=== PATIENT | male | born 1965 | race Caucasian/White ===

== ENCOUNTER 2017-01-05 14:51 | Emergency (ER) | END 2017-01-05 16:37 | disposition left against medical advice (07) | LOC: UCCORT 14:51 | DX: M79.671 Pain in right foot (principal); Z53.21 Procedure and treatment not carried out due to patient leaving prior to being seen by health care provider ==

== ENCOUNTER 2018-11-22 11:32 | Emergency (ER) | payer OTHER ==
--- NOTE | 2018-11-22 13:23 | UC ---
General HPI - HPI Summary HPI Summary: 53-year-old male comes in with a chief complaint of injuries after a fall. Just prior to arrival he was tach and his left leg broke through one of the boards. He also fell backwards landing on his bottom and upper shoulders and had his left neck and shoulder wrenched. Comes in with pain in the left lower leg left-sided neck and left shoulder. He has been able to bear weight on the leg. He does have swelling on the anterior aspect of the leg. No skin break from today's injury. The neck pain is on the left side of his neck he has no weakness or numbness the pain does not radiate down into his arm. Shoulders good range of motion but does increase the pain. Patient tells me that he's got a laceration that he had a left anterior ortiz it's been a couple of weeks now and is taking a long time to heal up. He's been using Neosporin and hydroperoxide peroxide on it almost daily. No pus drainage. - History of Current Complaint Chief Complaint: UCTrauma Stated Complaint: neck lt leg injury Time Seen by Provider: 11/22/18 12:53 Pain Intensity: 8 - Allergy/Home Medications Allergies/Adverse Reactions: Allergies Allergy/AdvReac Type Severity Reaction Status Date / Time diphenhydramine Allergy See Comment Verified 11/22/18 12:13 [From Benadryl] Home Medications: Home Medications Multivit-Min/Folic/Vit K/Lycop [Men's 50 Plus Multivitamin Tab] 1 tab PO DAILY 11/22/18 [History Confirmed 11/22/18] PMH/Surg Hx/FS Hx/Imm Hx Previously Healthy: Yes - OBESITY - Surgical History Surgical History: Yes Surgery Procedure, Year, and Place: right knee, femur repair - Family History Known Family History: Positive: Non-Contributory - Social History Alcohol Use: None Substance Use Type: None Smoking Status (MU): Never Smoked Tobacco Review of Systems All Other Systems Reviewed And Are Negative: Yes Constitutional: Positive: Negative Skin: Positive: Other - SEE HPI Eyes: Positive: Negative ENT: Positive: Negative Respiratory: Positive: Negative Cardiovascular: Positive: Negative Gastrointestinal: Positive: Negative Motor: Positive: Negative Neurovascular: Positive: Negative Musculoskeletal: Positive: Other: - SEE HPI Neurological: Positive: Negative Psychological: Positive: Negative Is Patient Immunocompromised?: No Physical Exam Triage Information Reviewed: Yes Appearance: Well-Appearing, No Pain Distress, Well-Nourished Vital Signs: Initial Vital Signs Temp 99.0 F 11/22/18 12:06 Pulse 82 11/22/18 12:06 Resp 16 11/22/18 12:06 BP 131/93 11/22/18 12:06 Pulse Ox 98 11/22/18 12:06 Vital Signs Reviewed: Yes Eye Exam: Normal Eyes: Positive: Conjunctiva Clear Neck: Positive: Supple, Other: - Tender to palpation all left side of the neck. No tenderness on the spinous processes of the midline. Respiratory: Positive: No respiratory distress Musculoskeletal: Positive: Other: - Patient is tender to palpation the left side of his neck through the trapezius to the left shoulder. Both shoulders have full range of motion both arms have full strength and no sensation deficits. Left anterior lower leg is swollen with ecchymosis. There is no posterior calf tenderness. Knees and ankles have full range of motion full- strength. Normal capillary refill. No sensation deficit. Neurological: Positive: Alert, Muscle Tone Normal Psychological Exam: Normal Psychological: Positive: Age Appropriate Behavior Skin: Positive: Other - On the left anterior ortiz patient has a 2-1/2 cm healed laceration. There is some erythema there is no drainage. The left anterior ortiz is swollen with ecchymosis. No active bleeding. Course/Dx - Course Course Of Treatment: Patient Name: NITZA DIEGO Medical Record#: [id number] Ordering Physician: Don Pulido MD Acct.#: [id number] : 1965 Age: 53 Sex: M Location: [facility] Exam Date: 11/22/181315 ADM Status: REG ER Order Information: SHOULDER LEFT 2+ VWS Accession Number: [id number] CPT: 09093 Indication: LEFT shoulder pain post fall. Comparison: No relevant prior exams available on the [facility] [place]. Technique: Internal rotation AP, external rotation Grashey, scapular Y, axillary views LEFT shoulder REPORT AND IMPRESSION: #. Negative for fracture. #. Normal acromioclavicular and glenohumeral joint alignment. #. 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 #. Unremarkable soft tissue contours. <Electronically signed by Mohan Faith MD in OV> 11/22/18 1410 Patient Name: NITZA DIEGO Medical Record#: [id number] Ordering Physician: Don Pulido MD Acct.#: [id number] : 1965 Age: 53 Sex: M Location: [facility] Exam Date: 11/22/18 1316 ADM Status: REG ER Order Information: TIBIA FIBULA LEFT Accession Number: [id number] CPT: 04549 Indication: LEFT lower leg post fall. Comparison: No relevant prior exams available on the [facility] [place]. Technique: AP and lateral views LEFT lower leg. Report: Diffuse soft tissue edema most prominent over the anterior and lateral aspects. Negative for fracture or malalignment. Polyarticular osteoarthritis. Osteoarthritis is moderately severe at the knee. IMPRESSION: #. Soft tissue swelling without evidence for fracture or malalignment. <Electronically signed by Mohan Faith MD in OV> 11/22/18 1409 Patient Name: NITZA DIEGO Medical Record#: [id number] Ordering Physician: Don Pulido MD Acct.#: [id number] : 1965 Age: 53 Sex: M Location: [facility] Exam Date: 11/22/18 1316 ADM Status: REG ER Order Information: SP CERVICAL 4+VWS Accession Number: [id number] CPT: 33496 Indication: Neck pain post fall. Comparison: No relevant prior exams available on the [facility] [place]. Technique: AP, open-mouth odontoid, lateral, and oblique views cervical spine. Report: Normal alignment from the craniocervical junction through the cervicothoracic junction. Negative for fracture. Preserved disc spaces. Oblique views are negative for osseous foraminal stenosis. Unremarkable prevertebral soft tissue contours. IMPRESSION: #. No radiographic evidence for cervical spine injury. Negative exam. <Electronically signed by Mohan Faith MD in OV> 11/22/18 1792 I discussed the x-rays with the patient. Patient does have swelling and the left anterior ortiz. There is no tenderness in the posterior calf on the left side. At this time clinically the patient is low risk for a deep venous thrombosis however because of the injury to leg I let the patient know that if he gets any pain or swelling in the back of the calf on that side he needs to get a venous Doppler ultrasound and he can do that here Saturday through Saturday in the morning or he can do that in the emergency department anytime. We will treat the slowly healing wound on the left ortiz by stopping the hydroperoxide stop and the neomycin and then switching over to cleaning with soap and water and using mupirocin as needed. Also going to use Keflex 500 mg by mouth 3 times a day because of possible underlying infection. Patient will be following up with his primary care physician. He should get reevaluated sooner if worse or any other questions or concerns. - Diagnoses Provider Diagnosis: Cervical strain, Left shoulder pain, Contusion of lower leg, left, Non-healing wound of lower extremity Discharge - Sign-Out/Discharge Documenting (check all that apply): Patient Departure All imaging exams completed and their final reports reviewed: Yes - Discharge Plan Condition: Stable Disposition: HOME Prescriptions: Cephalexin CAP* [Keflex CAP*] 500 mg PO TID #21 cap Mupirocin 1 applic TOPICAL BID #22 gm Patient Education Materials: Cervical Strain (ED), Chronic Wound Care (ED), Contusion in Adults (ED), Shoulder Pain (ED) Referrals: [facility] [Provider Group] Additional Instructions: FOLLOW UP WITH YOUR PRIMARY DOCTOR IF NOT COMPLETELY IMPROVED. STOP USING THE NEOSPORIN AND HYDROGEN PEROXIDE. USE THE MUPIROCIN AND CLEAN WITH SOAP AND WATER. GET RECHECKED SOONER IF YOUR CONDITION WORSENS OR ANY QUESTIONS OR CONCERNS. - Billing Disposition and Condition Condition: STABLE Disposition: Home
== END 2018-11-22 14:30 | disposition home or self-care (01) ==
LOC: UCEAST 11:32
DX: S16.1XXA Strain of muscle, fascia and tendon at neck level, initial encounter (principal); S80.12XA Contusion of left lower leg, initial encounter; W13.3XXA Fall through floor, initial encounter; Y92.9 Unspecified place or not applicable; M25.512 Pain in left shoulder; L97.229 Non-pressure chronic ulcer of left calf with unspecified severity; E66.9 Obesity, unspecified
CPT/HCPCS: 72050; 99212; G0463